=== PATIENT | female | born 1950 | race Caucasian/White ===

== ENCOUNTER 2016-12-24 11:09 | Day surgery (SDC) | payer MEDICARE, OTHER ==
[~2016-12-24 11:09] MED LIST: BETIMOL5 ML EACH EYE; COZAAR50 M1 PO; FISH OIL 1,2001 EAC5 PO; FLONASE ALLERG9.9 ML; MUCINEX600 M1 PO; PLAQUENIL200 M1 PO; PROTONIX40 M2 PO; REFRESH PLUS1 EACH EACH EYE; SINGULAIR10 M1 PO; SYNTHROID112 MC1 PO; VITAMIN B-12250 MC2 PO; VITAMIN D31000 UNI3 PO; ZALEPLON10 M1 PO; ZANAFLEX4 M2 PO
== END 2016-12-24 20:05 ==
LOC: SRG 11:09 → SHSB 11:13 → PACU 16:22 → SHSB 17:10
PROC: 09SM0ZZ Reposition Nasal Septum, Open Approach (ICD-10-PCS; principal; 2016-12-24)
PROC: 099T4ZZ Drainage of Left Frontal Sinus, Percutaneous Endoscopic Approach (ICD-10-PCS; 2016-12-24)
PROC: 099S4ZZ Drainage of Right Frontal Sinus, Percutaneous Endoscopic Approach (ICD-10-PCS; 2016-12-24)
PROC: 09BL4ZZ Excision of Nasal Turbinate, Percutaneous Endoscopic Approach (ICD-10-PCS; 2016-12-24)
DX: J34.2 Deviated nasal septum (principal); J32.9 Chronic sinusitis, unspecified; J34.3 Hypertrophy of nasal turbinates; I10 Essential (primary) hypertension; I83.90 Asymptomatic varicose veins of unspecified lower extremity; M19.90 Unspecified osteoarthritis, unspecified site; M35.00 Sjogren syndrome, unspecified; E03.9 Hypothyroidism, unspecified; G47.30 Sleep apnea, unspecified; K21.9 Gastro-esophageal reflux disease without esophagitis; E78.5 Hyperlipidemia, unspecified; K44.9 Diaphragmatic hernia without obstruction or gangrene; Z79.899 Other long term (current) drug therapy; Z88.1 Allergy status to other antibiotic agents; Z88.2 Allergy status to sulfonamides; Z88.8 Allergy status to other drugs, medicaments and biological substances; Z91.048 Other nonmedicinal substance allergy status; Z87.891 Personal history of nicotine dependence; Z90.49 Acquired absence of other specified parts of digestive tract; Z90.710 Acquired absence of both cervix and uterus; Z90.89 Acquired absence of other organs; Z98.890 Other specified postprocedural states
CPT/HCPCS: C1726; C2625; J1720